=== PATIENT | male | born 1965 | race Caucasian/White ===

== ENCOUNTER 2016-07-16 12:11 | Emergency (ER) | payer BC ==
[2016-07-16 14:17] LABS: HEMOGLOBIN 14.2 gm/dl (14.0-17.5); RED BLOOD COUNT 4.81 M/UL (4.20-5.50)
[2016-07-16 14:40] LABS: BUN/CREATININE RATIO 17 (0-10)
== END 2016-07-16 15:37 | disposition home or self-care (01) ==
LOC: ER1 12:11
PROVIDERS: Physician Assistant
DX: R55 Syncope and collapse (principal); E78.5 Hyperlipidemia, unspecified; Z79.899 Other long term (current) drug therapy
CPT/HCPCS: 36415; 71010; 80053; 81001; 82550; 82553; 83874; 84484; 85025; 93005; 96360; 99284